=== PATIENT | male | born 1985 | race Caucasian/White ===

== ENCOUNTER 2023-09-06 22:11 | Emergency (ER) | payer MEDICAID ==
[~2023-09-06] VITALS: Ht 172.7 cm; Wt 87.1 kg
[2023-09-06 22:24] VITALS: BP 128/79; PULSE 71; RESP 18; TEMP 98.3; O2SAT 96
[2023-09-06 23:10] VITALS: BP 128/79; PULSE 71; RESP 18; TEMP 98.3; O2SAT 96
== END 2023-09-07 00:29 | disposition home or self-care (01) ==
LOC: MED 22:11
DX: S09.90XA Unspecified injury of head, initial encounter (principal); W22.8XXA Striking against or struck by other objects, initial encounter; Y92.89 Other specified places as the place of occurrence of the external cause; Y93.89 Activity, other specified; Y99.8 Other external cause status
CPT/HCPCS: 70450; 99284

== ENCOUNTER 2023-10-08 19:33 | Emergency (ER) | payer MEDICAID ==
[~2023-10-08] VITALS: Ht 172.7 cm; Wt 85.3 kg
[2023-10-08 21:40] VITALS: BP 136/90; PULSE 63; RESP 17; TEMP 97.8; O2SAT 98
[2023-10-08] MEDS ORDERED: KEN.1C TP (23:29)
[2023-10-08 23:30] VITALS: BP 119/81; PULSE 78; RESP 17; TEMP 98; O2SAT 98
[2023-10-08] MEDS ORDERED: IBUP-2213 PO (23:30)
[2023-10-08] MEDS ORDERED: ACET-10509 PO (23:30)
[2023-10-08] MEDS ORDERED: LID5T TP (23:30)
[2023-10-08] MEDS ORDERED: CYCL-711 PO (23:30)
[2023-10-08] MEDS ORDERED: PRED20TA5 PO (23:30)
== END 2023-10-08 23:30 | disposition home or self-care (01) ==
LOC: MED 19:33
DX: L24.9 Irritant contact dermatitis, unspecified cause (principal); M54.42 Lumbago with sciatica, left side; Z79.899 Other long term (current) drug therapy
CPT/HCPCS: 73130; 99283